=== PATIENT | male | born 1950 | race Caucasian/White ===

== ENCOUNTER 2018-07-12 05:21 | Emergency (ER) | payer MEDICARE ==
[2018-07-12] MEDS ORDERED: Ondansetron PF 4 MG/2 ML Vial ONE (05:39)
[2018-07-12 05:42] LABS: Bilirubin Negative (Negative); Blood, Urine Negative (Negative); Clarity Clear (Clear); Glucose, Urine (Dipstick) Negative (Negative); Leukocyte Negative (Negative); Nitrite Negative (Negative); Protein, Urine (Dipstick) Negative (Neg-Trace); Specific Gravity, Urine 1.025 (1.005-1.030); Urobilinogen 0.2 mg/dL (0.2-1.0); pH, Urine 5.5 (5.0-9.0)
[2018-07-12] MEDS ORDERED: Ketorolac Tromethamine 30 MG/ML VIAL ONE (05:44)
[2018-07-12 05:57] LABS: #Basophils 0.1 thou/uL (0.0-0.2); #Eosinphils 0.1 thou/uL (0.0-0.7); #Lymphocytes 0.7 thou/uL (1.20-3.40); #Monocytes 0.9 thou/uL (0.11-0.59); #Neutrophils 7.6 thou/uL (1.40-6.50); %Basophils 0.8 % (0.0-1.0); %Eosinophils 1.3 % (0.0-10.0); %Lymphocytes 7.2 % (21.0-51.0); %Monocytes 9.8 % (0.0-10.0); %Neutrophils 80.8 % (42.0-75.0); Hemoglobin 11.8 g/dL (14.0-18.0); Mean Corpuscular HGB CONC 32.1 g/dL (32.0-36.0); Mean Corpuscular Hemoglobin 27.5 pg (27.0-31.0); Mean Corpuscular Volume 85.5 fL (78.0-98.0); Mean Platelet Volume 6.8 fL (7.4-10.4); Platelet Count 277 thou/uL (130-400); RBC Distribution Width 12.3 % (11.5-14.5); Red Blood Cell (RBC) Count 4.31 mill/uL (4.70-6.10); White Blood Cell (WBC) Count 9.4 thou/uL (4.8-10.8)
[2018-07-12 06:07] LABS: ALT (SGPT) 18 U/L (8-55); AST (SGOT) 20 U/L (5-34); Albumin 4.1 g/dL (3.4-4.8); Alkaline Phosphatase 63 U/L (40-150); Anion Gap 16 mmol/L (10-20); BUN (Urea Nitrogen) 30 mg/dL (8.4-25.7); Bilirubin, Total 0.4 mg/dL (0.2-1.2); Calc. Creatinine Clearance 0 mL/min (70-130); Calcium 9.2 mg/dL (7.8-10.44); Carbon Dioxide 23 mmol/L (23-31); Chloride 104 mmol/L (98-107); Estimated GFR-MDRD 35; Globulin 3.1 g/dL (2.4-3.5); Glucose 160 mg/dL (80-115); Potassium 3.8 mmol/L (3.5-5.1); Protein, Total 7.2 g/dL (5.8-8.1); Sodium 139 mmol/L (136-145)
--- NOTE | 2018-07-12 10:24 | CT ---
PRELIMINARY REPORT/[facility]/EMERGENTY AFTER-HOURS PROCEDURE CT Abdomen and Pelvis Without Intravenous Contrast EXAM DATE/TIME: 07/12/2018 6:04 AM CLINICAL HISTORY: 68 years old, male; Pain; Abdominal pain; Flank; Left; Prior surgery; Surgery date: 6+ months; Surgery type: Prostate seeds implanted for prostate CA treatment; Patient HX: C/O left flank/back uriel n, nausea, vomiting/heaving for the past 2 hours TECHNIQUE: Axial computed tomography images of the abdomen and pelvis without intravenous contrast. All CT scans at this facility use at least one of these dose optimization techniques: automated exposure control; mA and/or kV adjustment per patient size (includes targeted exams where dose is matched to clinical indication); or iterative reconstruction. Coronal and sagittal reformatted images were created and reviewed. COMPARISON: No relevant prior studies available. FINDINGS: Lower thorax: There is mild interstitial edema at the lung bases. ABDOMEN: Liver: The liver is within normal limits for this noncontrast study. Gallbladder and bile ducts: The gallbladder is contracted but otherwise normal. Pancreas: The pancreas appears normal. No ductal dilatation. Spleen: The spleen demonstrates punctate calcifications, consistent with remote granulomatous organis m exposure. Adrenals: The adrenal glands are normal. Kidneys and ureters: The right kidney is normal. There is mild LEFT hydroureteronephrosis without obv ious obstructing calculus although exam is somewhat limited by slice thickness. Stomach and bowel: The stomach is normal. The duodenum is unremarkable. Appendix: A normal appendix is identified. PELVIS: Bladder: The bladder is decompressed but otherwise normal. Reproductive: There are multiple hyperdense radiation seeds within the prostate parenchyma. ABDOMEN and PELVIS: Intraperitoneal space: Normal. No free air. No significant fluid collection. Bones/joints: No acute fracture. No dislocation. Soft tissues: Unremarkable. Vasculature: Normal. No abdominal aortic aneurysm. Lymph nodes: Normal. No enlarged lymph nodes. IMPRESSION: There is mild LEFT hydroureteronephrosis without obvious obstructing ureteral calculus although exam is somewhat limited by slice thickness. Thank you for allowing us to participate in the care of your patient. Dictated and Authenticated by: Jorge Santoyo MD 07/12/2018 6:46 AM Central Time ([place] & [place]) FINAL REPORT CT ABDOMEN AND PELVIS WITHOUT CONTRAST: Date: 07/12/18 FINDINGS/IMPRESSION: I agree with the preliminary report given by Tuan. POS: [facility]
== END 2018-07-12 07:10 | disposition home or self-care (01) ==
LOC: NAV ERS 05:21
DX: N20.0 Calculus of kidney (principal); E11.9 Type 2 diabetes mellitus without complications; I10 Essential (primary) hypertension; Z79.899 Other long term (current) drug therapy
CPT/HCPCS: 74176; 80053; 81003; 85025; 96361; 96374; 96375; J1885; J2405

== ENCOUNTER 2018-08-18 05:30 | Emergency (ER) | payer MEDICARE ==
[2018-08-18] MEDS ORDERED: Ondansetron PF 4 MG/2 ML Vial ONE (05:47)
[2018-08-18] MEDS ORDERED: Sodium Chloride 0.9% 1,000 ML ONE (05:47)
[2018-08-18] MEDS ORDERED: Ketorolac Tromethamine 30 MG/ML VIAL ONE (05:47)
[2018-08-18 05:57] LABS: #Basophils 0.1 thou/uL (0.0-0.2); #Eosinphils 0.3 thou/uL (0.0-0.7); #Lymphocytes 1.5 thou/uL (1.20-3.40); #Monocytes 0.8 thou/uL (0.11-0.59); #Neutrophils 6.2 thou/uL (1.40-6.50); %Basophils 0.9 % (0.0-1.0); %Eosinophils 3.7 % (0.0-10.0); %Monocytes 8.9 % (0.0-10.0); %Neutrophils 69.5 % (42.0-75.0); Hemoglobin 11.2 g/dL (14.0-18.0); Mean Corpuscular HGB CONC 31.6 g/dL (32.0-36.0); Mean Corpuscular Hemoglobin 26.2 pg (27.0-31.0); Mean Platelet Volume 6.8 fL (7.4-10.4); Platelet Count 361 thou/uL (130-400); RBC Distribution Width 12.7 % (11.5-14.5); Red Blood Cell (RBC) Count 4.26 mill/uL (4.70-6.10); White Blood Cell (WBC) Count 8.9 thou/uL (4.8-10.8)
[2018-08-18] MEDS ORDERED: Morphine 4 MG/ML VIAL ONE (06:04)
[2018-08-18 06:14] LABS: Anion Gap 18 mmol/L (10-20); BUN (Urea Nitrogen) 38 mg/dL (8.4-25.7); Calc. Creatinine Clearance 0 mL/min (70-130); Calcium 9.2 mg/dL (7.8-10.44); Carbon Dioxide 19 mmol/L (23-31); Chloride 104 mmol/L (98-107); Estimated GFR-MDRD 33; Glucose 167 mg/dL (80-115); Sodium 136 mmol/L (136-145)
[2018-08-18] MEDS ORDERED: Tamsulosin HCl 0.4 MG CAP ONE (06:22)
[2018-08-18 06:24] LABS: Potassium 4.4 mmol/L (3.5-5.1)
[2018-08-18] MEDS ORDERED: Promethazine HCl 25 MG/ML VIAL ONE (06:44)
[2018-08-18 07:54] LABS: Bilirubin Negative (Negative); Blood, Urine Large (Negative); Clarity Cloudy (Clear); Glucose, Urine (Dipstick) Negative (Negative); Leukocyte Small (Negative); Nitrite Negative (Negative); Protein, Urine (Dipstick) > or equal to 300 mg/dL (Neg-Trace); Specific Gravity, Urine 1.025 (1.005-1.030); Urobilinogen 0.2 mg/dL (0.2-1.0)
[2018-08-18 08:02] LABS: Bacteria/HPF 2+ HPF (None Seen); Renal Epithelial 0-3 HPF (0-3)
[2018-08-18 08:04] LABS: AST (SGOT) 14 U/L (5-34); Bilirubin, Total 0.3 mg/dL (0.2-1.2)
[2018-08-18 08:18] LABS: ALT (SGPT) 14 U/L (8-55); Albumin 3.8 g/dL (3.4-4.8); Alkaline Phosphatase 73 U/L (40-150); Bilirubin, Direct 0.1 mg/dL (0.1-0.3); Protein, Total 6.8 g/dL (5.8-8.1)
--- NOTE | 2018-08-18 08:49 | CT ---
CT ABDOMEN AND PELVIS WITHOUT CONTRAST: Date: 08/18/18 HISTORY: Right lower quadrant pain. FINDINGS: Comparison made with exam of 07/12/18. Absence of oral and IV contrast reduces the sensitivity of exam, particularly for evaluation of solid organs and bowel. There are calcified granulomas in the lower chest. No calcified gallstones are seen. No free air or f ree fluid is noted in the abdomen or pelvis. No calculi seen in the kidneys, ureters, or the urinary bladder. There is left-sided hydroureteronephrosis. There is suggestion of a mass in the left side of the urinary bladder. A small hiatal hernia is present. There are calcified granulomas in the spleen. A small duodenal diverticulum is present. There is no evidence of appendicitis. There are radiation seeds in the prostate and mild inflammatory changes in the lower pelvic fat, like ly from previous radiation. There are degenerative changes in the spine. There is no evidence of aneu rysmal dilatation of the abdominal aorta. IMPRESSION: 1. Left-sided hydroureteronephrosis, likely due to a mass in the urinary bladder. Further evaluation with cystoscopy is recommended. 2. Small hiatal hernia. 3. Old granulomatous disease. 4. Small duodenum diverticulum. POS: [facility]
== END 2018-08-18 09:10 | disposition home or self-care (01) ==
LOC: NAV ERS 05:30
DX: N30.01 Acute cystitis with hematuria (principal); N32.9 Bladder disorder, unspecified; E11.9 Type 2 diabetes mellitus without complications; I10 Essential (primary) hypertension; Z79.899 Other long term (current) drug therapy
CPT/HCPCS: 36415; 74176; 80048; 80076; 81003; 81015; 85025; 87086; 93005; 96361; 96374; 96375; J1170; J1885; J2270; J2405; J2550; J7050

== ENCOUNTER 2018-08-19 13:27 | Emergency (ER) | payer MEDICARE ==
[2018-08-19] MEDS ORDERED: Morphine 4 MG/ML VIAL ONE ×2 (14:05→15:01)
[2018-08-19] MEDS ORDERED: Ondansetron PF 4 MG/2 ML Vial ONE (14:06)
[2018-08-19] MEDS ORDERED: Sodium Chloride 0.9% 1,000 ML ONE (14:14)
[2018-08-19 14:15] LABS: #Basophils 0.1 thou/uL (0.0-0.2); #Eosinphils 0.1 thou/uL (0.0-0.7); #Lymphocytes 1.2 thou/uL (1.20-3.40); #Monocytes 0.6 thou/uL (0.11-0.59); #Neutrophils 9.5 thou/uL (1.40-6.50); %Basophils 0.6 % (0.0-1.0); %Eosinophils 1.1 % (0.0-10.0); %Lymphocytes 10.7 % (21.0-51.0); %Neutrophils 82.6 % (42.0-75.0); Hemoglobin 10.8 g/dL (14.0-18.0); Mean Corpuscular HGB CONC 31.8 g/dL (32.0-36.0); Mean Corpuscular Hemoglobin 26.4 pg (27.0-31.0); Mean Corpuscular Volume 83.3 fL (78.0-98.0); Mean Platelet Volume 6.4 fL (7.4-10.4); Platelet Count 316 thou/uL (130-400); RBC Distribution Width 13.1 % (11.5-14.5); White Blood Cell (WBC) Count 11.6 thou/uL (4.8-10.8)
[2018-08-19 14:37] LABS: ALT (SGPT) 16 U/L (8-55); AST (SGOT) 16 U/L (5-34); Albumin 4.1 g/dL (3.4-4.8); Alkaline Phosphatase 73 U/L (40-150); Anion Gap 16 mmol/L (10-20); BUN (Urea Nitrogen) 37 mg/dL (8.4-25.7); Bilirubin, Total 0.3 mg/dL (0.2-1.2); Calc. Creatinine Clearance 0 mL/min (70-130); Calcium 9.4 mg/dL (7.8-10.44); Carbon Dioxide 22 mmol/L (23-31); Chloride 105 mmol/L (98-107); Estimated GFR-MDRD 28; Globulin 3.4 g/dL (2.4-3.5); Glucose 128 mg/dL (80-115); Lipase 14 U/L (8-78); Potassium 4.2 mmol/L (3.5-5.1); Protein, Total 7.5 g/dL (5.8-8.1); Sodium 139 mmol/L (136-145)
[2018-08-19] MEDS ORDERED: cefTRIAXone\\ROCEPHIN 1 GM VIAL ONE (15:02)
[2018-08-19] MEDS ORDERED: Sodium Chloride 0.9% 100 ML ONE (15:02)
--- NOTE | 2018-08-19 15:09 | ULT ---
ULTRASOUND GALLBLADDER RIGHT UPPER QUADRANT: Date: 08/19/18 HISTORY: Abdominal pain. COMPARISON: None. FINDINGS: Real-time Astudillo scale and color evaluation of the right upper quadrant of the abdomen was performed. There is diffuse increased hepatic echotexture. Gallbladder wall thickness is normal. No pericholecys tic fluid. Sonographic Cabrera's sign is negative. Common bile duct measures 6.0 mm. Right kidney measures 9.2 x 5.7 x 5.7 cm. IMPRESSION: No evidence of acute gallbladder pathology. Please see the CT examination from the prior day, for whi ch there is a left bladder mass, as well as metastatic iliac adenopathy. POS: [facility]
--- NOTE | 2018-08-19 15:16 | RAD ---
CHEST 1 VIEW AND ABDOMEN 2 VIEWS: Date: 08/19/18 HISTORY: Right upper quadrant and right lower quadrant abdominal pain. FINDINGS/IMPRESSION: The heart size is enlarged. No focal areas of consolidation, pneumothoraces, or pleural effusions are seen. No free air or differential fluid levels are identified. The bowel gas pattern is unremarkable . There is fecal material in the colon. Brachytherapy seeds are seen in the prostate. Degenerative ch anges are present in the spine. POS: [facility]
[2018-08-19] MEDS ORDERED: Fentanyl 100 MCG/2 ML VIAL ONE (15:46)
== END 2018-08-19 16:00 | disposition short-term general hospital (02) ==
LOC: NAV ERS 13:27
DX: N13.2 Hydronephrosis with renal and ureteral calculous obstruction (principal); N32.9 Bladder disorder, unspecified; E11.9 Type 2 diabetes mellitus without complications; I10 Essential (primary) hypertension; Z79.899 Other long term (current) drug therapy
CPT/HCPCS: 74022; 76705; 80053; 83605; 83690; 85025; 96361; 96374; 96375; 96376; J0696; J2270; J2405; J3010; J7050

== ENCOUNTER 2018-12-05 09:59 | Outpatient (CLI) | payer MEDICARE, OTHER ==
[2018-12-05 10:36] LABS: ALT (SGPT) 15 U/L (8-55); AST (SGOT) 25 U/L (5-34); Albumin 3.5 g/dL (3.4-4.8); Alkaline Phosphatase 107 U/L (40-150); Anion Gap 14 mmol/L (10-20); BUN (Urea Nitrogen) 24 mg/dL (8.4-25.7); Bilirubin, Total 0.3 mg/dL (0.2-1.2); Calc. Creatinine Clearance 0 mL/min (70-130); Calcium 9.2 mg/dL (7.8-10.44); Carbon Dioxide 23 mmol/L (23-31); Chloride 104 mmol/L (98-107); Estimated GFR-MDRD 71; Globulin 3.1 g/dL (2.4-3.5); Glucose 145 mg/dL (80-115); Potassium 5.1 mmol/L (3.5-5.1); Protein, Total 6.6 g/dL (5.8-8.1); Sodium 136 mmol/L (136-145)
[2018-12-05 10:42] LABS: #Lymphocytes 0.8 thou/uL (1.20-3.40); #Monocytes 0.1 thou/uL (0.11-0.59); #Neutrophils 2.9 thou/uL (1.40-6.50); %Basophils 0.7 % (0.0-1.0); %Eosinophils 1.1 % (0.0-10.0); %Lymphocytes 20.4 % (21.0-51.0); %Monocytes 1.9 % (0.0-10.0); %Neutrophils 75.8 % (42.0-75.0); Hemoglobin 8.3 g/dL (14.0-18.0); Mean Corpuscular HGB CONC 30.4 g/dL (32.0-36.0); Mean Corpuscular Hemoglobin 26.8 pg (27.0-31.0); Mean Corpuscular Volume 88.3 fL (78.0-98.0); Mean Platelet Volume 5.3 fL (7.4-10.4); Platelet Count 538 thou/uL (130-400); RBC Distribution Width 16.9 % (11.5-14.5); Red Blood Cell (RBC) Count 3.08 mill/uL (4.70-6.10); White Blood Cell (WBC) Count 3.8 thou/uL (4.8-10.8)
[2018-12-05 15:14] LABS: Hemoglobin A1c 4.9 % (4.0-6.0)
== END 2018-12-05 10:00 | disposition home or self-care (01) ==
LOC: NAV LAB 09:59
PROVIDERS: ATTEND Family Medicine
DX: C61 Malignant neoplasm of prostate (principal); I10 Essential (primary) hypertension; Z79.899 Other long term (current) drug therapy
CPT/HCPCS: 80053; 83036; 85025

== ENCOUNTER 2019-01-03 17:25 | Emergency (ER) | payer MEDICARE, OTHER ==
[2019-01-03] MEDS ORDERED: cefTRIAXone\\ROCEPHIN 2 GM VIAL ONE (18:04)
[2019-01-03] MEDS ORDERED: Acetaminophen 500 MG TAB ONE (18:04)
[2019-01-03] MEDS ORDERED: Sodium Chloride 0.9% 1,000 ML ONE ×2 (18:04→19:13)
[2019-01-03] MEDS ORDERED: Sodium Chloride 0.9% 100 ML ONE (18:04)
[2019-01-03] MEDS ORDERED: Ondansetron PF 4 MG/2 ML Vial ONE (18:05)
[2019-01-03 18:23] LABS: Bilirubin Negative (Negative); Blood, Urine Large (Negative); Glucose, Urine (Dipstick) Negative (Negative); Leukocyte Moderate (Negative); Nitrite Negative (Negative); Protein, Urine (Dipstick) > or equal to 300 mg/dL (Neg-Trace); Specific Gravity, Urine 1.025 (1.005-1.030); Urobilinogen 0.2 mg/dL (0.2-1.0); pH, Urine 5.5 (5.0-9.0)
[2019-01-03 18:24] LABS: ALT (SGPT) 17 U/L (8-55); AST (SGOT) 29 U/L (5-34); Albumin 3.5 g/dL (3.4-4.8); Alkaline Phosphatase 74 U/L (40-150); Anion Gap 20 mmol/L (10-20); BUN (Urea Nitrogen) 36 mg/dL (8.4-25.7); Bilirubin, Total 0.3 mg/dL (0.2-1.2); CK (CPK) 53 U/L (30-200); Calc. Creatinine Clearance 0 mL/min (70-130); Carbon Dioxide 16 mmol/L (23-31); Chloride 100 mmol/L (98-107); Estimated GFR-MDRD 38; Globulin 4.5 g/dL (2.4-3.5); Glucose 144 mg/dL (80-115); INR-International Normal Ratio 1.2; Lipase 19 U/L (8-78); PTT 44.9 SEC (22.9-36.1); Potassium 4.2 mmol/L (3.5-5.1); Prothrombin Time 15.7 SEC (12.0-14.7); Sodium 132 mmol/L (136-145)
[2019-01-03 18:25] LABS: Hemoglobin 7.5 g/dL (14.0-18.0); Mean Corpuscular HGB CONC 32.3 g/dL (32.0-36.0); Mean Corpuscular Hemoglobin 26.3 pg (27.0-31.0); Mean Corpuscular Volume 81.3 fL (78.0-98.0); RBC Distribution Width 16.7 % (11.5-14.5); Red Blood Cell (RBC) Count 2.85 mill/uL (4.70-6.10); White Blood Cell (WBC) Count 0.7 thou/uL (4.8-10.8)
[2019-01-03 18:27] LABS: Platelet Count 24 thou/uL (130-400)
[2019-01-03 18:28] LABS: Clarity Hazy (Clear)
[2019-01-03 18:29] LABS: Bilirubin Negative (Negative); Blood, Urine Large (Negative); Glucose, Urine (Dipstick) Negative (Negative); Leukocyte Moderate (Negative); Nitrite Negative (Negative); Protein, Urine (Dipstick) 100 mg/dL (Neg-Trace); Urobilinogen 0.2 mg/dL (0.2-1.0)
[2019-01-03 18:30] LABS: Clarity Hazy (Clear)
[2019-01-03 18:39] LABS: Bacteria/HPF 4+ HPF (None Seen); Transitional Epithelial 0-3 HPF (0-3)
[2019-01-03 18:42] LABS: Bacteria/HPF 4+ HPF (None Seen); RBC/HPF GREATER THAN 50-TNTC HPF (0-3); Squamous Epithelial 0-3 HPF (0-3)
[2019-01-03 18:43] LABS: Crystals/HPF Other Crystals HPF (Negative)
[2019-01-03] MEDS ORDERED: Adacel (T-DAP) 0.5 ML SYRINGE ONE (18:49)
--- NOTE | 2019-01-03 18:51 | RAD ---
Exam: Chest one view HISTORY:Fever. Comparison: 11/19/2018 FINDINGS: Cardiac silhouette:Enlarged cardiac silhouette Pulmonary vessels: Normal Costophrenic angles: Clear Stable right-sided Mediport catheter LUNGS: No masses or consolidation. Pneumothorax: None Osseous abnormalities: None IMPRESSION: No acute cardiopulmonary process.
[2019-01-03] MEDS ORDERED: Bacitracin Zinc 1 Packet ONE (19:13)
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
--- NOTE | 2019-01-03 20:40 | RAD ---
CERVICAL SPINE FOUR VIEWS: History: Persistent left arm pain. Fall. FINDINGS: AP, lateral, open mouth and swimmer's views of the cervical spine are submitted for interpretation. On the open mouth projection, lateral masses of C1 and C2 articulate appropriately. Limited evaluatio n of the odontoid process. Predental space is normal. There is no prevertebral soft tissue swelling. Limited evaluation of the cervical spine on the latera l projection. No obvious fracture. Vertebral body height appears to be maintained. Mild loss of disc space height and osteophyte formation at C5-6 is suspected. Limited evaluation of the cervicothoracic junction. On the AP projection, mild hypertrophy of the posterior elements. IMPRESSION: Limited evaluation of the cervical spine. No obvious fracture. If there is concern, consider CT. POS: [facility]
== END 2019-01-03 19:42 | disposition short-term general hospital (02) ==
LOC: NAV ERS 17:25
DX: A41.9 Sepsis, unspecified organism (principal); D64.9 Anemia, unspecified; D70.9 Neutropenia, unspecified; R50.81 Fever presenting with conditions classified elsewhere; E11.9 Type 2 diabetes mellitus without complications; I10 Essential (primary) hypertension; Z85.46 Personal history of malignant neoplasm of prostate; Z79.899 Other long term (current) drug therapy
CPT/HCPCS: 70450; 71045; 72050; 80053; 81003; 81015; 82550; 83605; 83690; 84484; 85025; 85610; 85730; 87040; 87077; 87086; 87186; 90471; 90715; 93005; 96361; 96365; 96375; J0696; J2405; J3490; J7050

== ENCOUNTER 2019-02-15 15:42 | Emergency (ER) | payer MEDICARE ==
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
--- NOTE | 2019-02-15 16:33 | CT ---
CT BRAIN WITHOUT CONTRAST: Date: 02/15/19 HISTORY: Fall. Laceration above and below right knee. No loss of consciousness. Right-sided headache . FINDINGS: Comparison made with exam of 01/03/19. Changes of mild chronic small vessel ischemic disease are again seen. The ventricular size is appropr iate and the basilar cisterns are patent. No evidence of acute infarct, hemorrhage, midline shift, or abnormal extra-axial fluid collections are seen. The bony calvarium is intact. There is mucosal dise ase in the paranasal sinuses. Soft tissue hematoma is seen in the right periorbital region. There is a right-sided nasal bone fracture. Tiny radiopaque densities in the right scalp are again seen. IMPRESSION: No CT evidence of acute intracranial process. POS: [facility]
[2019-02-15] MEDS ORDERED: Lidocaine 1% (PF) 30 ML VIAL ONE (16:35)
[2019-02-15 16:42] LABS: INR-International Normal Ratio 1.7; Prothrombin Time 19.6 SEC (12.0-14.7)
[2019-02-15 16:43] LABS: PTT 48.1 SEC (22.9-36.1)
[2019-02-15 16:52] LABS: ALT (SGPT) 24 U/L (8-55); AST (SGOT) 28 U/L (5-34); Albumin 3.3 g/dL (3.4-4.8); Alkaline Phosphatase 80 U/L (40-150); Anion Gap 17 mmol/L (10-20); BUN (Urea Nitrogen) 46 mg/dL (8.4-25.7); Bilirubin, Total 0.3 mg/dL (0.2-1.2); Calc. Creatinine Clearance 0 mL/min (70-130); Calcium 8.9 mg/dL (7.8-10.44); Carbon Dioxide 18 mmol/L (23-31); Chloride 100 mmol/L (98-107); Estimated GFR-MDRD 38; Globulin 4.6 g/dL (2.4-3.5); Glucose 115 mg/dL (80-115); Potassium 3.9 mmol/L (3.5-5.1); Protein, Total 7.9 g/dL (5.8-8.1); Sodium 131 mmol/L (136-145)
[2019-02-15 17:02] LABS: Mean Corpuscular HGB CONC 31.7 g/dL (32.0-36.0); Mean Corpuscular Hemoglobin 25.4 pg (27.0-31.0); Mean Corpuscular Volume 80.3 fL (78.0-98.0); Mean Platelet Volume 6.3 fL (7.4-10.4); Platelet Count 24 thou/uL (130-400); RBC Distribution Width 18.6 % (11.5-14.5); Red Blood Cell (RBC) Count 2.76 mill/uL (4.70-6.10); White Blood Cell (WBC) Count 3.1 thou/uL (4.8-10.8)
[2019-02-15 17:05] LABS: #Lymphocytes 1.1 thou/uL (1.20-3.40); #Monocytes 0.5 thou/uL (0.11-0.59); #Neutrophils 1.4 thou/uL (1.40-6.50); %Basophils 1.5 % (0.0-1.0); %Eosinophils 1.5 % (0.0-10.0); Differential Comment REVIEWED
[2019-02-15 17:06] LABS: Anisocytosis MODERATE=16-30 cells (100X) (0-5/hpf); Platelet Morphology Comment Appears Decreased
== END 2019-02-15 18:50 | disposition short-term general hospital (02) ==
LOC: NAV ERS 15:42
DX: S01.81XA Laceration without foreign body of other part of head, initial encounter (principal); S01.111A Laceration without foreign body of right eyelid and periocular area, initial encounter; S00.31XA Abrasion of nose, initial encounter; N17.9 Acute kidney failure, unspecified; E11.9 Type 2 diabetes mellitus without complications; I10 Essential (primary) hypertension; W22.8XXA Striking against or struck by other objects, initial encounter; Z86.718 Personal history of other venous thrombosis and embolism; Z79.899 Other long term (current) drug therapy
CPT/HCPCS: 70450; 70486; 72125; 80053; 85025; 85610; 85730; 99284; J2001

== ENCOUNTER 2019-03-18 16:51 | Emergency (ER) | payer MEDICARE ==
[2019-03-18 17:58] LABS: #Lymphocytes 1.4 thou/uL (1.20-3.40); #Monocytes 0.9 thou/uL (0.11-0.59); #Neutrophils 4.6 thou/uL (1.40-6.50); %Basophils 0.6 % (0.0-1.0); %Eosinophils 0.5 % (0.0-10.0); %Lymphocytes 19.7 % (21.0-51.0); %Monocytes 12.9 % (0.0-10.0); %Neutrophils 66.3 % (42.0-75.0); Hemoglobin 9.8 g/dL (14.0-18.0); Mean Corpuscular HGB CONC 32.7 g/dL (32.0-36.0); Mean Corpuscular Hemoglobin 28.3 pg (27.0-31.0); Mean Corpuscular Volume 86.7 fL (78.0-98.0); Mean Platelet Volume 7.1 fL (7.4-10.4); Platelet Count 59 thou/uL (130-400); RBC Distribution Width 15.4 % (11.5-14.5); Red Blood Cell (RBC) Count 3.47 mill/uL (4.70-6.10); White Blood Cell (WBC) Count 6.9 thou/uL (4.8-10.8)
[2019-03-18 18:03] LABS: Anion Gap 16 mmol/L (10-20); BUN (Urea Nitrogen) 26 mg/dL (8.4-25.7); Calc. Creatinine Clearance 0 mL/min (70-130); Calcium 8.7 mg/dL (7.8-10.44); Carbon Dioxide 22 mmol/L (23-31); Chloride 101 mmol/L (98-107); Estimated GFR-MDRD 46; Glucose 91 mg/dL (80-115); Potassium 4.4 mmol/L (3.5-5.1); Sodium 135 mmol/L (136-145)
== END 2019-03-18 17:53 | disposition short-term general hospital (02) ==
LOC: NAV ERS 16:51
DX: N99.522 Malfunction of incontinent external stoma of urinary tract (principal); E11.9 Type 2 diabetes mellitus without complications; I10 Essential (primary) hypertension; F41.9 Anxiety disorder, unspecified; Z86.718 Personal history of other venous thrombosis and embolism; Z79.899 Other long term (current) drug therapy
CPT/HCPCS: 80048; 85025; 99284

== ENCOUNTER 2019-03-20 19:09 | Emergency (ER) | payer MEDICARE, OTHER ==
[2019-03-20 19:30] LABS: #Basophils 0.1 thou/uL (0.0-0.2); #Lymphocytes 0.6 thou/uL (1.20-3.40); #Monocytes 0.9 thou/uL (0.11-0.59); #Neutrophils 7.1 thou/uL (1.40-6.50); %Basophils 0.9 % (0.0-1.0); %Eosinophils 0.1 % (0.0-10.0); %Lymphocytes 6.7 % (21.0-51.0); %Monocytes 10.1 % (0.0-10.0); %Neutrophils 82.2 % (42.0-75.0); Hemoglobin 8.9 g/dL (14.0-18.0); Mean Corpuscular HGB CONC 32.5 g/dL (32.0-36.0); Mean Corpuscular Hemoglobin 28.4 pg (27.0-31.0); Mean Corpuscular Volume 87.4 fL (78.0-98.0); Mean Platelet Volume 6.1 fL (7.4-10.4); Platelet Count 106 thou/uL (130-400); RBC Distribution Width 15.8 % (11.5-14.5); Red Blood Cell (RBC) Count 3.12 mill/uL (4.70-6.10); White Blood Cell (WBC) Count 8.7 thou/uL (4.8-10.8)
--- NOTE | 2019-03-20 19:32 | CT ---
CT head noncontrast HISTORY: Altered mental status. COMPARISON: 03/08/2019. FINDINGS: There is no evidence of acute intracranial hemorrhage or infarct. The ventricles appear nor mal in size, shape and position. There is no mass effect or shift of midline structures. Visualized paranasal sinuses remain well-aerated. Lipomatous lesion along the falx is similar in appearance to the previous study. IMPRESSION: Chronic-type findings are stable. No acute intracranial abnormalities are demonstrated.
[2019-03-20 19:35] LABS: INR-International Normal Ratio 1.1; PTT 38.8 SEC (22.9-36.1); Prothrombin Time 14.5 SEC (12.0-14.7)
[2019-03-20 19:43] LABS: ALT (SGPT) 13 U/L (8-55); AST (SGOT) 21 U/L (5-34); Albumin 2.9 g/dL (3.4-4.8); Alkaline Phosphatase 95 U/L (40-150); Anion Gap 17 mmol/L (10-20); BUN (Urea Nitrogen) 34 mg/dL (8.4-25.7); Bilirubin, Total 0.4 mg/dL (0.2-1.2); Calc. Creatinine Clearance 0 mL/min (70-130); Calcium 8.6 mg/dL (7.8-10.44); Carbon Dioxide 22 mmol/L (23-31); Chloride 100 mmol/L (98-107); Estimated GFR-MDRD 25; Globulin 4.8 g/dL (2.4-3.5); Glucose 104 mg/dL (80-115); Potassium 4.3 mmol/L (3.5-5.1); Protein, Total 7.7 g/dL (5.8-8.1); Sodium 135 mmol/L (136-145)
[2019-03-20 19:46] LABS: Acetaminophen Less than 6.0 mcg/mL (10.0-30.0); Alcohol Less than 10 mg/dL (Less than 10); Salicylate Less than 8.0 mg/dL (15.0-30.0)
[2019-03-20 19:54] LABS: Amphetamine Not Detected (NotDetected); Barbiturates Screen Not Detected (NotDetected); Benzodiazepine Screen Detected (NotDetected); Cocaine Metabolite Screen Not Detected (NotDetected); Medtox Control Line Valid? VALID (VALID); Methadone Not Detected (NotDetected); Methamphetamine Not Detected (NotDetected); Opiate Screen Not Detected (NotDetected); Oxycodone Screen Not Detected (NotDetected); Phencyclidine (PCP) Not Detected (NotDetected); THC/Cannabinoid Screen Not Detected (NotDetected); Tricyclic Screen Not Detected (NotDetected)
[2019-03-20] MEDS ORDERED: Aspirin Chewable 81 MG TAB ONE (19:55)
[2019-03-20 20:01] LABS: CKMB 0.7 ng/mL (0-6.6)
[2019-03-20] MEDS ORDERED: Sodium Chloride 0.9% 1,000 ML ONE (20:06)
[2019-03-20 20:15] LABS: Bilirubin Negative (Negative); Blood, Urine Large (Negative); Clarity Slightly Cloudy (Clear); Glucose, Urine (Dipstick) 100 mg/dL (Negative); Leukocyte Small (Negative); Nitrite Negative (Negative); Protein, Urine (Dipstick) > or equal to 300 mg/dL (Neg-Trace); Urobilinogen 0.2 mg/dL (Less than 2)
[2019-03-20 20:23] LABS: Bacteria/HPF Rare-Few HPF (None Seen); RBC/HPF Greater than 50 HPF (0-3); Squamous Epithelial 0-3 HPF (0-3); WBC/HPF 0-3 HPF (0-3)
[2019-03-20 20:25] LABS: Yeast-Budding 1+ HPF (None Seen); Yeast-Hyphae 2+ HPF (None Seen)
== END 2019-03-20 20:27 | disposition short-term general hospital (02) ==
LOC: NAV ERS 19:09
DX: I63.9 Cerebral infarction, unspecified (principal); N28.9 Disorder of kidney and ureter, unspecified; R41.82 Altered mental status, unspecified; D64.9 Anemia, unspecified; R79.89 Other specified abnormal findings of blood chemistry; E11.9 Type 2 diabetes mellitus without complications; I10 Essential (primary) hypertension; Z86.718 Personal history of other venous thrombosis and embolism; F41.9 Anxiety disorder, unspecified; Z79.899 Other long term (current) drug therapy
CPT/HCPCS: 36416; 70450; 80053; 80306; 80307; 81003; 81015; 82553; 84443; 84484; 85025; 85610; 85730; 93005; 94760; J7050

== ENCOUNTER 2019-07-07 14:56 | Emergency (ER) | payer MEDICARE, OTHER ==
[2019-07-07] MEDS ORDERED: Sodium Chloride 0.9% 1,000 ML ONE ×2 (15:53→17:18)
[2019-07-07 15:59] LABS: Bilirubin Negative (Negative); Blood, Urine Large (Negative); Glucose, Urine (Dipstick) 100 mg/dL (Negative); Leukocyte Moderate (Negative); Nitrite Negative (Negative); Protein, Urine (Dipstick) > or equal to 300 mg/dL (Neg-Trace); Urobilinogen 0.2 mg/dL (Less than 2)
[2019-07-07 16:00] LABS: #Lymphocytes 0.4 thou/uL (1.20-3.40); #Monocytes 0.4 thou/uL (0.11-0.59); #Neutrophils 6.6 thou/uL (1.40-6.50); %Basophils 0.3 % (0.0-1.0); %Eosinophils 0.3 % (0.0-10.0); %Lymphocytes 4.9 % (21.0-51.0); %Monocytes 5.1 % (0.0-10.0); %Neutrophils 89.4 % (42.0-75.0); Hemoglobin 6.8 g/dL (14.0-18.0); Mean Corpuscular HGB CONC 30.8 g/dL (32.0-36.0); Mean Corpuscular Hemoglobin 28.1 pg (27.0-31.0); Mean Corpuscular Volume 91.2 fL (78.0-98.0); Mean Platelet Volume 6.5 fL (7.4-10.4); Platelet Count 166 thou/uL (130-400); RBC Distribution Width 16.5 % (11.5-14.5); Red Blood Cell (RBC) Count 2.44 mill/uL (4.70-6.10); White Blood Cell (WBC) Count 7.4 thou/uL (4.8-10.8)
[2019-07-07 16:05] LABS: Clarity Hazy (Clear)
[2019-07-07 16:12] LABS: RBC/HPF 21-50 HPF (0-3); Squamous Epithelial 0-3 HPF (0-3); Transitional Epithelial 0-3 HPF (None Seen)
[2019-07-07 16:13] LABS: Bacteria/HPF Rare-Few HPF (None Seen)
[2019-07-07 16:15] LABS: ALT (SGPT) 200 U/L (8-55); AST (SGOT) 147 U/L (5-34); Albumin 3.3 g/dL (3.4-4.8); Alkaline Phosphatase 344 U/L (40-110); Anion Gap 17 mmol/L (10-20); BUN (Urea Nitrogen) 98 mg/dL (8.4-25.7); Bilirubin, Total 0.3 mg/dL (0.2-1.2); Calc. Creatinine Clearance 0 mL/min (70-130); Calcium 9.3 mg/dL (7.8-10.44); Carbon Dioxide 19 mmol/L (23-31); Chloride 105 mmol/L (98-107); Estimated GFR-MDRD 16; Glucose 104 mg/dL (80-115); Potassium 4.3 mmol/L (3.5-5.1); Protein, Total 7.3 g/dL (5.8-8.1); Sodium 137 mmol/L (136-145)
[2019-07-07 16:37] LABS: Bilirubin Negative (Negative); Blood, Urine Large (Negative); Glucose, Urine (Dipstick) 100 mg/dL (Negative); Leukocyte Moderate (Negative); Nitrite Positive (Negative); Protein, Urine (Dipstick) 100 mg/dL (Neg-Trace); Urobilinogen 0.2 mg/dL (Less than 2)
--- NOTE | 2019-07-07 16:41 | CT ---
Head CT without contrast 07/07/2019: COMPARISON: 03/22/2019 HISTORY: Body aches TECHNIQUE: Axial CT imaging at 5 mm intervals from vertex through skull base without contrast FINDINGS: Imaged paranasal sinuses and mastoid air cells well-aerated. No displaced calvarial fractur e, intracranial hemorrhage, midline shift, or mass effect. There is a new rounded hypodensity measuring 7 mm along the posterior aspect of the putamen on the ri ght. There is a subtle peripheral area of hypodensity within the occipital lobe posteriorly on the left on image 15 measuring 1.1 cm. In addition, there is a subtle new hypodensity in the region of th e cerebellar vermis on the left on axial image 12. No intracranial hemorrhage. 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 IMPRESSION: 3 small new areas of intra-axial hypodensity as detailed above. These findings could be r elated to metastatic disease or areas of multifocal infarction. The former is favored. Recommend correlation with MRI of the brain with and without contrast CODE T
[2019-07-07 16:51] LABS: Clarity Hazy (Clear)
[2019-07-07 16:53] LABS: Bacteria/HPF 1+ HPF (None Seen); Squamous Epithelial 0-3 HPF (0-3)
[2019-07-07] MEDS ORDERED: cefTRIAXone\\ROCEPHIN 2 GM VIAL ONE (17:18)
[2019-07-07] MEDS ORDERED: Sodium Chloride 0.9% 500 ML ONE (17:18)
[2019-07-07] MEDS ORDERED: Sodium Chloride 0.9% 100 ML ONE (17:18)
[2019-07-07] MEDS ORDERED: Oseltamivir 75 MG CAP ONE (17:18)
[2019-07-07] MEDS ORDERED: Meropenem 500 MG VIAL ONE (17:29)
--- NOTE | 2019-07-07 18:33 | RAD ---
UPRIGHT FRONTAL CHEST RADIOGRAPH 07/07/19 COMPARISON: 03/08/19 HISTORY: Agitation. Altered mental status, influenza. FINDINGS: There is a right sided Port-A-Cath. There is no pneumothorax or pleural fluid. There is no lobar cons olidation or alveolar edema. There is an irregular focus of increased density in the right suprahilar region, of uncertain signifi cance. This could represent a confluence of vascular and osseous shadows, a pulmonary nodule, or an a annabelle of infectious pneumonitis. This distinction cannot be made on the basis of this examination. Ther e is increased density in the right paratracheal region consistent with lymphadenopathy. IMPRESSION: Lymphadenopathy in the right paratracheal region concerning for metastatic disease. Ill-defined irreg ular nodular density in the right perihilar region for which follow-up PA and lateral imaging of the chest is advised. Code T POS: [facility]
== END 2019-07-07 18:32 | disposition short-term general hospital (02) ==
LOC: NAV ERS 14:56
DX: C79.31 Secondary malignant neoplasm of brain (principal); N17.9 Acute kidney failure, unspecified; D64.9 Anemia, unspecified; E86.0 Dehydration; R41.82 Altered mental status, unspecified; J11.1 Influenza due to unidentified influenza virus with other respiratory manifestations; F41.9 Anxiety disorder, unspecified; I10 Essential (primary) hypertension; Z86.718 Personal history of other venous thrombosis and embolism
CPT/HCPCS: 70450; 71045; 80053; 81003; 81015; 83605; 85025; 87040; 87086; 87804; 93005; 96361; 96374; 96375; J0696; J2185; J3490; J7050

== ENCOUNTER 2019-07-20 11:40 | Outpatient (CLI) | payer MEDICARE, OTHER ==
[2019-07-20 12:04] LABS: CO2 Tension (PvCO2) 32.9 mmHg (40.0-50.0)
[2019-07-20 12:04] LABS: ALT (SGPT) 288 U/L (8-55); AST (SGOT) 185 U/L (5-34); Albumin 3.3 g/dL (3.4-4.8); Alkaline Phosphatase 778 U/L (40-110); Anion Gap 24 mmol/L (10-20); BUN (Urea Nitrogen) 90 mg/dL (8.4-25.7); Bilirubin, Total 1.2 mg/dL (0.2-1.2); Calc. Creatinine Clearance 0 mL/min (70-130); Carbon Dioxide 14 mmol/L (23-31); Chloride 106 mmol/L (98-107); Estimated GFR-MDRD 14; Globulin 3.6 g/dL (2.4-3.5); Glucose 156 mg/dL (80-115); Potassium 3.6 mmol/L (3.5-5.1); Protein, Total 6.9 g/dL (5.8-8.1); Sodium 140 mmol/L (136-145)
[2019-07-20 12:05] LABS: Base Excess-Venous -10.2 mmol/L (-2.0 to 3.0); Bicarbonate (HCO3v) 15.6 mmol/L (22.0-28.0); Chloride 110 mmol/L (98-107); Hemoglobin - Calc 9.2 g/dL (14.0-18.0); Potassium 3.3 mmol/L (3.5-5.1); Sodium 138 mmol/L (138-145)
[2019-07-20 12:06] LABS: Calcium, Ionized 1.21 mmol/L (See Comments:); T. Carbon Dioxide 16.6 mmol/L (22.0-28.0)
[2019-07-20 12:25] LABS: #Lymphocytes 0.2 thou/uL (1.20-3.40); #Monocytes 0.3 thou/uL (0.11-0.59); #Neutrophils 6.4 thou/uL (1.40-6.50); %Basophils 0.5 % (0.0-1.0); %Eosinophils 0.1 % (0.0-10.0); %Lymphocytes 3.4 % (21.0-51.0); %Monocytes 4.3 % (0.0-10.0); %Neutrophils 91.7 % (42.0-75.0); Anisocytosis SLIGHT = 6-15 cells (100X) (0-5/hpf); Hemoglobin 8.3 g/dL (14.0-18.0); Hypochromia SLIGHT = 6-15 cells (100X) (0-5/hpf); MDiff Complete? YES; Mean Corpuscular HGB CONC 30.5 g/dL (32.0-36.0); Mean Corpuscular Hemoglobin 29.1 pg (27.0-31.0); Mean Corpuscular Volume 95.4 fL (78.0-98.0); Platelet Count 87 thou/uL (130-400); Platelet Morphology Comment Appears Adequate; RBC Distribution Width 19.3 % (11.5-14.5); Red Blood Cell (RBC) Count 2.85 mill/uL (4.70-6.10)
[2019-07-20 12:46] LABS: Follow-up Chemistry Comp? YES; Follow-up Hematology Comp? YES; Follow-up Result - Chemistry REPORT FAXED; Follow-up Result - Hematology REPORT FAXED
== END 2019-07-20 11:41 | disposition home or self-care (01) ==
LOC: NAV LAB 11:40
PROVIDERS: ATTEND Family Medicine
DX: I12.0 Hypertensive chronic kidney disease with stage 5 chronic kidney disease or end stage renal disease (principal); E11.22 Type 2 diabetes mellitus with diabetic chronic kidney disease; N18.6 End stage renal disease; C61 Malignant neoplasm of prostate; R63.4 Abnormal weight loss
CPT/HCPCS: 36415; 80053; 82330; 82803; 85025